=== PATIENT | male | born 1955 | race Caucasian/White ===

== ENCOUNTER 2021-09-08 13:58 | Emergency (ER) | payer MEDICARE, MEDICAID ==
[~2021-09-08 13:58] MED LIST: CITALOPRAM20 MG OR; CYMBALTA60 MG OR; LISINOP/HCTZ1 TA1 PO; LORTAB 7.5 OR; METOPROL TAR25 MG PO; NO MEDS; PLAVIX75 MG PO; PROZAC20 M1 OR; SM ASPIRIN325 M1 OR; ULTRAM50 MG OR; ZESTRIL10 M1 OR
== END 2021-09-08 15:58 | disposition left against medical advice (07) ==
LOC: ED 13:58 → LWOBS 15:57
DX: Z53.21 Procedure and treatment not carried out due to patient leaving prior to being seen by health care provider (principal)

== ENCOUNTER 2021-09-09 19:50 | Emergency (ER) | payer MEDICARE, OTHER ==
[~2021-09-09] VITALS: Ht 172.7 cm; Wt 81.9 kg
[2021-09-09 22:52] LABS: IMMATURE GRANULOCYTES 0.1 % (0.0-5.0); MEAN CORPUSCULAR HGB 30.6 pG CALC (26.0-32.0); MEAN CORPUSCULAR HGB CONC 31.9 g/dL CAL (32.0-36.0); NEUT# 0.07 thou/uL (1.82-7.42); RED BLOOD COUNT 2.71 mill/uL (4.70-6.10); RED CELL DISTRI WIDTH 18.3 % (11.5-15.5)
[2021-09-09 22:55] LABS: HEMOGLOBIN 8.3 g/dl (14.0-18.0); MEAN CELL VOLUME 95.9 fL CALC (80.0-100.0)
[2021-09-09 23:05] LABS: ALBUMIN 3.7 g/dL (3.2-5.0); ALKALINE PHOSPHATASE 95 u/l (38-126); BUN 10 mg/dL (8-23); BUN/CREATININE RATIO 10 (12-20 (CALC)); CHLORIDE 97 mmol/l (95-108); GFR > 60 ML/MIN (>=60 (CALC)); GFR FOR AFR.AMER. > 60 ML/MIN (>=60 (CALC)); POTASSIUM 3.7 mmol/l (3.5-5.1); SGOT/AST 22 u/l (19-48); TOTAL PROTEIN 6.3 g/dL (6.3-8.2)
[2021-09-09 23:06] LABS: ANION GAP 10 (6-22 (CALC)); CARBON DIOXIDE 29 mmol/l (22-30); SODIUM 132 mmol/l (137-146)
[2021-09-10 00:12] VITALS: BP 132/64
[2021-09-10 00:27] VITALS: BP 152/69; BP 155/69
[2021-09-10 00:43] LABS: URINE BILIRUBIN - DIPSTICK NEGATIVE (NEGATIVE); URINE BLOOD DIPSTICK NEGATIVE (NEGATIVE); URINE COLOR YELLOW; URINE GLUCOSE - DIPSTICK NEGATIVE (NEGATIVE); URINE KETONE NEGATIVE (NEGATIVE); URINE LEUK ESTERASE NEGATIVE (NEGATIVE); URINE PROTEIN - DIPSTICK NEGATIVE (NEG-TRACE)
[2021-09-10 00:46] LABS: URINE NITRITE - DIPSTICK NEGATIVE (Negative)
[2021-09-10] MEDS ORDERED: CHROMAGEN1 CAP PO (00:59)
[2021-09-10 01:55] VITALS: BP 127/60
== END 2021-09-10 02:10 | disposition home or self-care (01) ==
LOC: ED 19:50
PROVIDERS: Family Medicine
PROC: 30233N1 Transfusion of Nonautologous Red Blood Cells into Peripheral Vein, Percutaneous Approach (ICD-10-PCS; principal; 2021-09-10)
DX: D64.9 Anemia, unspecified (principal); R19.5 Other fecal abnormalities; D72.829 Elevated white blood cell count, unspecified; F17.200 Nicotine dependence, unspecified, uncomplicated
CPT/HCPCS: P9016; Q9967

== ENCOUNTER 2021-09-12 15:36 | Emergency (ER) | payer MEDICARE, OTHER ==
[~2021-09-12] VITALS: Ht 172.7 cm; Wt 64.0 kg
[~2021-09-12 15:36] MED LIST changes: +CHROMAGEN1 CAP PO
[2021-09-12 17:25] LABS: HEMATOCRIT 28.8 % (39.0-50.0); HEMOGLOBIN 9.2 g/dl (14.0-18.0); IMMATURE GRANULOCYTES 0.1 % (0.0-5.0); MEAN CELL VOLUME 95.4 fL CALC (80.0-100.0); MEAN CORPUSCULAR HGB 30.5 pG CALC (26.0-32.0); MEAN CORPUSCULAR HGB CONC 31.9 g/dL CAL (32.0-36.0); NEUT# 0.06 thou/uL (1.82-7.42); RED BLOOD COUNT 3.02 mill/uL (4.70-6.10); RED CELL DISTRI WIDTH 17.6 % (11.5-15.5)
[2021-09-12 17:39] LABS: ALBUMIN 3.8 g/dL (3.2-5.0); ALKALINE PHOSPHATASE 105 u/l (38-126); AMYLASE 59 u/l (30-110); ANION GAP 8 (6-22 (CALC)); BILIRUBIN, TOTAL 0.9 mg/dL (0.0-1.4); BUN 10 mg/dL (8-23); BUN/CREATININE RATIO 9 (12-20 (CALC)); CARBON DIOXIDE 30 mmol/l (22-30); CHLORIDE 98 mmol/l (95-108); CREATININE 1.1 mg/dL (0.7-1.3); GFR > 60 ML/MIN (>=60 (CALC)); GFR FOR AFR.AMER. > 60 ML/MIN (>=60 (CALC)); LIPASE 77 u/l (23-300); POTASSIUM 3.9 mmol/l (3.5-5.1); SGOT/AST 26 u/l (19-48); SODIUM 133 mmol/l (137-146); TOTAL PROTEIN 6.6 g/dL (6.3-8.2)
[2021-09-12 17:40] LABS: ACT PARTIAL THROMBO TIME 29.5 SECONDS (20.0-32.5); INTERNATIONAL NORMALIZED RATIO 1.1 RATIO (0.7-1.3)
[2021-09-12] MEDS ORDERED: ALTOPREV40 MG PO (19:08)
[2021-09-12] MEDS ORDERED: GOLYTELY PO (20:23)
[2021-09-12 20:42] VITALS: BP 122/63
[2021-09-12 20:44] LABS: URINE BILIRUBIN - DIPSTICK NEGATIVE (NEGATIVE); URINE COLOR YELLOW; URINE GLUCOSE - DIPSTICK NEGATIVE (NEGATIVE); URINE KETONE NEGATIVE (NEGATIVE); URINE LEUK ESTERASE NEGATIVE (NEGATIVE); URINE PROTEIN - DIPSTICK NEGATIVE (NEG-TRACE); URINE SPECIFIC GRAVITY 1.015; URINE UROBILINOGEN - DIPSTICK 0.2 E.U./dL (0.2)
[2021-09-12 20:47] LABS: URINE BLOOD DIPSTICK NEGATIVE (NEGATIVE); URINE NITRITE - DIPSTICK NEGATIVE (Negative)
== END 2021-09-12 21:00 | disposition home or self-care (01) ==
LOC: ED 15:36
DX: K59.00 Constipation, unspecified (principal); I10 Essential (primary) hypertension; F17.200 Nicotine dependence, unspecified, uncomplicated; Z86.73 Personal history of transient ischemic attack (TIA), and cerebral infarction without residual deficits
CPT/HCPCS: Q9967

== ENCOUNTER 2021-09-21 12:02 | Emergency (ER) | payer MEDICARE, OTHER ==
[~2021-09-21] VITALS: Ht 172.7 cm; Wt 84.0 kg
[~2021-09-21 12:02] MED LIST changes: +ALTOPREV40 MG PO; +GOLYTELY PO
[2021-09-21] MEDS ORDERED: DEXAMETHASON0.5 MG PO (12:41)
[2021-09-21 12:52] LABS: HEMATOCRIT 25.8 % (39.0-50.0); IMMATURE GRANULOCYTES 0.3 % (0.0-5.0); MANUAL DIFFERENTIAL YES; MEAN CELL VOLUME 98.1 fL CALC (80.0-100.0); MEAN CORPUSCULAR HGB 30.4 pG CALC (26.0-32.0); PLATELET COUNT 52 thou/uL (130-400); RED BLOOD COUNT 2.63 mill/uL (4.70-6.10); RED CELL DISTRI WIDTH 18.8 % (11.5-15.5)
[2021-09-21 13:04] LABS: ALBUMIN 3.3 g/dL (3.2-5.0); BILIRUBIN, TOTAL 1.1 mg/dL (0.0-1.4); CREATININE 1.5 mg/dL (0.7-1.3); POTASSIUM 3.5 mmol/l (3.5-5.1); TOTAL PROTEIN 5.9 g/dL (6.3-8.2)
[2021-09-21 14:03] LABS: BAND 0 % (0-8)
[2021-09-21 14:04] LABS: NUCLEATED RED BLOOD CELL 3 /100WBC (0-1); PLATELET ESTIMATE MARKED DECREASE
[2021-09-21 16:14] VITALS: BP 117/55
== END 2021-09-21 16:16 | disposition short-term general hospital (02) ==
LOC: ED 12:02
PROVIDERS: Family Medicine
DX: D69.6 Thrombocytopenia, unspecified (principal); D64.9 Anemia, unspecified; D72.829 Elevated white blood cell count, unspecified; I10 Essential (primary) hypertension; F17.200 Nicotine dependence, unspecified, uncomplicated; Z86.73 Personal history of transient ischemic attack (TIA), and cerebral infarction without residual deficits; Z20.822 Contact with and (suspected) exposure to COVID-19; R06.2 Wheezing